=== PATIENT | female | born 1945 | race Caucasian/White ===

== ENCOUNTER → 2018-02-27 | Outpatient (CLI) | payer OTHER ==
[2018-02-27 17:54] LABS: BASO % 0.3 %; BASO ABS # 0.02 K/uL (0-0.2); EOS % 1.7 %; EOS ABS # 0.11 K/uL (0-0.5); HEMATOCRIT 37.4 % (37-47); HEMOGLOBIN 12.1 g/dL (12.0-16.0); IG# 0.01 K/uL (0.00-0.02); LYMPH ABS # 2.52 K/uL (1.2-3.4); MEAN CELL VOLUME 86.6 fL (80-100); MEAN CORPUSCULAR HGB CONC 32.4 g/dl (32-36); MEAN PLATELET VOLUME 9.7 fL (7.4-10.4); MONO % 10.1 %; MONO ABS # 0.67 K/uL (0.11-0.59); NEUT % 49.7 %; NEUT ABS # 3.31 K/uL (1.4-6.5); PLATELET COUNT 315 K/uL (130-400); RED CELL DISTRIBUTION WIDTH CV 14.3 % (11.5-14.5); WHITE BLOOD COUNT 6.64 K/uL (4.8-10.8)
[2018-02-27 18:31] LABS: TRANSFERRIN 274 mg/dl (200-360)
== END | disposition home or self-care (01) ==
LOC: C.LABMFLN 12:53
PROVIDERS: ATTEND Family Medicine
DX: D64.9 Anemia, unspecified (principal)